=== PATIENT | female | born 1990 | race American Indian/Alaskan Native ===

== ENCOUNTER 2019-05-27 11:09 | Emergency (ER) | payer SELFPAY ==
[2019-05-27 11:21] VITALS: BP 123/66
--- NOTE | 2019-05-27 12:45 | Emergency Department Report ---
ED Allergic Reaction HPI - General Chief complaint: Allergic Reaction Stated complaint: ALLERGIC REACTION Time Seen by Provider: 05/27/19 12:41 Source: patient Mode of arrival: Ambulatory Limitations: No Limitations - History of Present Illness Initial Comments: Elizabeth presents with itching hives from drug reaction to metronidazole started yesterday for vaginitis, "bacterial infection." Has red patched on chest abdomen and hands. Diffuse itching. No angioedema. No shortness of breath. MD Complaint: allergic reaction, hives -: days(s) (1) Exposure: medication (new prescription flagyl) Symptoms: rash, itching Severity: mild Treatment Prior to Arrival: none Previous Allergy History: none - Related Data Previous Rx's Medication Instructions Recorded Last Taken Type Clindamycin 2% [Clindamycin 2% VAG 1 applicatio VG QHS 7 Days #7 cream 05/27/19 Unknown Rx CREAM] Famotidine [Pepcid] 20 mg PO BID 3 Days #6 tablet 05/27/19 Unknown Rx diphenhydrAMINE [Benadryl CAP] 50 mg PO QID 3 Days #12 capsule 05/27/19 Unknown Rx predniSONE [Deltasone] 50 mg PO QDAY 3 Days #3 tab 05/27/19 Unknown Rx Allergies Allergy/AdvReac Type Severity Reaction Status Date / Time metronidazole [From Flagyl] Allergy Hives Verified 05/27/19 11:21 Penicillins Allergy Hives Verified 05/27/19 11:21 ED Review of Systems ROS: Stated complaint: ALLERGIC REACTION Other details as noted in HPI Comment: All other systems reviewed and negative Constitutional: denies: fever, malaise Respiratory: denies: cough Cardiovascular: denies: chest pain Skin: rash, lesions ED Past Medical Hx - Past Medical History Previous Medical History?: No - Surgical History Past Surgical History?: No - Social History Smoking Status: Current Every Day Smoker Substance Use Type: None - Medications Home Medications: Home Medications Medication Instructions Recorded Confirmed Last Taken Type Clindamycin 2% [Clindamycin 2% VAG 1 applicatio VG QHS 7 Days #7 cream 05/27/19 Unknown Rx CREAM] Famotidine [Pepcid] 20 mg PO BID 3 Days #6 tablet 05/27/19 Unknown Rx diphenhydrAMINE [Benadryl CAP] 50 mg PO QID 3 Days #12 capsule 05/27/19 Unknown Rx predniSONE [Deltasone] 50 mg PO QDAY 3 Days #3 tab 05/27/19 Unknown Rx ED Physical Exam - General Limitations: No Limitations General appearance: alert, in no apparent distress - Head Head exam: Present: atraumatic, normocephalic - Eye Eye exam: Present: normal appearance - ENT ENT exam: Present: mucous membranes moist - Neck Neck exam: Present: normal inspection - Respiratory Respiratory exam: Present: normal lung sounds bilaterally. Absent: respiratory distress, wheezes, rales, rhonchi - Cardiovascular Cardiovascular Exam: Present: regular rate, normal rhythm, normal heart sounds. Absent: systolic murmur, diastolic murmur, rubs, gallop - GI/Abdominal GI/Abdominal exam: Present: soft, normal bowel sounds. Absent: distended, tenderness, guarding, rebound - Extremities Exam Extremities exam: Present: normal inspection - Back Exam Back exam: Present: normal inspection - Neurological Exam Neurological exam: Present: alert, oriented X3 - Psychiatric Psychiatric exam: Present: normal affect, normal mood - Skin Skin exam: Present: warm, dry, intact, rash, other (small red patches on both hands chest). Absent: normal color ED Course Vital Signs 05/27/19 11:18 Temperature 97.8 F Pulse Rate 78 Respiratory 18 Rate Blood Pressure 123/66 O2 Sat by Pulse 100 Oximetry ED Medical Decision Making - Medical Decision Making Allergic drug reaction: Prescribed prednisone and Benadryl famotidine no angioedema or bronchospasm present I replaced the metronidazole treatment with clindamycin cream Critical care attestation.: If time is entered above; I have spent that time in minutes in the direct care of this critically ill patient, excluding procedure time. ED Disposition Clinical Impression: Allergic drug reaction, Vaginitis Disposition: DC-01 TO HOME OR SELFCARE Is pt being admited?: No Does the pt Need Aspirin: No Condition: Stable Instructions: Antibiotic Medication Allergy (ED), Vaginitis (ED), Bacterial Vaginosis (ED) Additional Instructions: You are having an allergic reaction to allergic to metronidazole. The brand name is Flagyl. Prescriptions: Clindamycin 2% [Clindamycin 2% VAG CREAM] 1 applicatio VG QHS 7 Days #7 cream diphenhydrAMINE [Benadryl CAP] 50 mg PO QID 3 Days #12 capsule predniSONE [Deltasone] 50 mg PO QDAY 3 Days #3 tab Famotidine [Pepcid] 20 mg PO BID 3 Days #6 tablet Referrals: CHRISTIANO MENDOZA MD [Primary Care Provider] - 3-5 Days Forms: Work/School Release Form(ED)
[2019-05-27] MEDS ORDERED: PEPCID PO ONE (12:46)
[2019-05-27] MEDS ORDERED: BENADRYL PO ONE (12:46)
[2019-05-27] MEDS ORDERED: DELTASONE ONE (12:58)
[2019-05-27] MEDS: DELTASONE PO STA ×2 (13:00→13:31)
[2019-05-27] MEDS ORDERED: DELTASONE PO ONE ×2 (13:01→13:16)
== END 2019-05-27 13:38 | disposition home or self-care (01) ==
LOC: ED 11:09
DX: T47.0X5A Adverse effect of histamine H2-receptor blockers, initial encounter (principal); N76.0 Acute vaginitis; F17.200 Nicotine dependence, unspecified, uncomplicated; Y92.89 Other specified places as the place of occurrence of the external cause
CPT/HCPCS: 99282; J7512

== ENCOUNTER 2019-09-11 09:17 | Emergency (ER) | payer SELFPAY ==
--- NOTE | 2019-09-11 09:24 | Event Note ---
ED Screening Note ED Screening Note: vaginal irritation vaginal discharge +dysuria +itching no PMHx allergy: flagyl-rash, pcn-rash states she has a PCP, but does not have walk ins This initial assessment/diagnostic orders/clinical plan/treatment(s) is/are subject to change based on patients health status, clinical progression and re-assessment by fellow clinical providers in the ED. Further treatment and workup at subsequent clinical providers discretion. Patient/guardian urged not to elope from the ED as their condition may be serious if not clinically assessed and managed. Initial orders include: UA, urine preg
[2019-09-11 10:13] LABS: Bacteria,Urine 1+ /HPF (Negative); Bilirubin,Urine NEG (Negative); Blood,Urine NEG (Negative); Color,Urine Straw (Yellow); Protein,Urine <15 mg/dL mg/dL (Negative); Urobilinogen,Urine < 2.0 mg/dL (<2.0); WBC,Urine < 1.0 /HPF (0.0-6.0)
[2019-09-11 10:14] LABS: HCG Qualitative,Urine Negative (Negative)
--- NOTE | 2019-09-11 10:24 | Emergency Department Report ---
ED Male HPI - General Chief complaint: Urogenital-Female Stated complaint: IRRIATATION PRIVATE AREA Time Seen by Provider: 09/11/19 09:22 Source: patient Mode of arrival: Ambulatory Limitations: No Limitations - Related Data Previous Rx's Medication Instructions Recorded Last Taken Type Clindamycin 2% [Clindamycin 2% VAG 1 applicatio VG QHS 7 Days #7 cream 05/27/19 Unknown Rx CREAM] Famotidine [Pepcid] 20 mg PO BID 3 Days #6 tablet 05/27/19 Unknown Rx diphenhydrAMINE [Benadryl CAP] 50 mg PO QID 3 Days #12 capsule 05/27/19 Unknown Rx predniSONE [Deltasone] 50 mg PO QDAY 3 Days #3 tab 05/27/19 Unknown Rx Allergies Allergy/AdvReac Type Severity Reaction Status Date / Time metronidazole [From Flagyl] Allergy Hives Verified 05/27/19 11:21 Penicillins Allergy Hives Verified 05/27/19 11:21 ED Review of Systems ROS: Stated complaint: IRRIATATION PRIVATE AREA Other details as noted in HPI Comment: All other systems reviewed and negative ED Past Medical Hx - Past Medical History Previous Medical History?: No - Surgical History Past Surgical History?: No - Social History Smoking Status: Current Every Day Smoker Substance Use Type: None - Medications Home Medications: Home Medications Medication Instructions Recorded Confirmed Last Taken Type Clindamycin 2% [Clindamycin 2% VAG 1 applicatio VG QHS 7 Days #7 cream 05/27/19 Unknown Rx CREAM] Famotidine [Pepcid] 20 mg PO BID 3 Days #6 tablet 05/27/19 Unknown Rx diphenhydrAMINE [Benadryl CAP] 50 mg PO QID 3 Days #12 capsule 05/27/19 Unknown Rx predniSONE [Deltasone] 50 mg PO QDAY 3 Days #3 tab 05/27/19 Unknown Rx ED Physical Exam - General Limitations: No Limitations General appearance: alert, in no apparent distress - Head Head exam: Present: atraumatic, normocephalic - Eye Eye exam: Present: normal appearance - ENT ENT exam: Present: mucous membranes moist - Neck Neck exam: Present: normal inspection - Respiratory Respiratory exam: Present: normal lung sounds bilaterally. Absent: respiratory distress - Cardiovascular Cardiovascular Exam: Present: regular rate, normal rhythm. Absent: systolic murmur, diastolic murmur, rubs, gallop - GI/Abdominal GI/Abdominal exam: Present: soft, normal bowel sounds. Absent: distended, tenderness - External exam: Present: normal external exam. Absent: erythema, swelling, lesions, lacerations, bleeding Speculum exam: Absent: vaginal discharge Bi-manual exam: Absent: cervical motion tendernes - Extremities Exam Extremities exam: Present: normal inspection, full ROM - Back Exam Back exam: Present: normal inspection - Neurological Exam Neurological exam: Present: alert, oriented X3 - Psychiatric Psychiatric exam: Present: normal affect, normal mood - Skin Skin exam: Present: warm, dry, intact, normal color. Absent: rash ED Course Vital Signs 09/11/19 09:23 Temperature 98.2 F Pulse Rate 86 Respiratory 18 Rate Blood Pressure 108/57 O2 Sat by Pulse 97 Oximetry Critical care attestation.: If time is entered above; I have spent that time in minutes in the direct care of this critically ill patient, excluding procedure time. ED Disposition Condition: Stable
--- NOTE | 2019-09-11 10:34 | Emergency Department Report ---
ED Female HPI - General Chief complaint: Urogenital-Female Stated complaint: IRRIATATION PRIVATE AREA Time Seen by Provider: 09/11/19 09:22 Source: patient Mode of arrival: Ambulatory Limitations: No Limitations - History of Present Illness Initial comments: This is a 28-year-old female who presents to ED complaining of some vaginal irritation related to some condom use. Patient states her symptoms started this morning. She denies any vaginal discharge but states to the some irritation to the vaginal area. She denies dysuria, pelvic or abdominal pain, nausea vomiting, fever. Patient states she is on the Depo-Provera and has not seen her cycle for a while. Associated Symptoms: denies other symptoms. denies: vaginal discharge, vaginal bleeding, loss of appetite - Related Data Sexually active: Yes Previous Rx's Medication Instructions Recorded Last Taken Type Famotidine [Pepcid] 20 mg PO BID 3 Days #6 tablet 05/27/19 Unknown Rx diphenhydrAMINE [Benadryl CAP] 50 mg PO QID 3 Days #12 capsule 05/27/19 Unknown Rx predniSONE [Deltasone] 50 mg PO QDAY 3 Days #3 tab 05/27/19 Unknown Rx Clindamycin 2% [Clindamycin 2% VAG 1 applicatio VG QHS 7 Days #7 cream 09/11/19 Unknown Rx CREAM] Allergies Allergy/AdvReac Type Severity Reaction Status Date / Time metronidazole [From Flagyl] Allergy Hives Verified 05/27/19 11:21 Penicillins Allergy Hives Verified 05/27/19 11:21 ED Review of Systems ROS: Stated complaint: IRRIATATION PRIVATE AREA Other details as noted in HPI Comment: All other systems reviewed and negative ED Past Medical Hx - Past Medical History Previous Medical History?: No - Surgical History Past Surgical History?: No - Social History Smoking Status: Current Every Day Smoker Substance Use Type: None - Medications Home Medications: Home Medications Medication Instructions Recorded Confirmed Last Taken Type Famotidine [Pepcid] 20 mg PO BID 3 Days #6 tablet 05/27/19 Unknown Rx diphenhydrAMINE [Benadryl CAP] 50 mg PO QID 3 Days #12 capsule 05/27/19 Unknown Rx predniSONE [Deltasone] 50 mg PO QDAY 3 Days #3 tab 05/27/19 Unknown Rx Clindamycin 2% [Clindamycin 2% VAG 1 applicatio VG QHS 7 Days #7 cream 09/11/19 Unknown Rx CREAM] ED Physical Exam - General Limitations: No Limitations General appearance: alert, in no apparent distress - Head Head exam: Present: atraumatic, normocephalic - Eye Eye exam: Present: normal appearance - ENT ENT exam: Present: mucous membranes moist - Neck Neck exam: Present: normal inspection - Respiratory Respiratory exam: Present: normal lung sounds bilaterally. Absent: respiratory distress - Cardiovascular Cardiovascular Exam: Present: regular rate, normal rhythm. Absent: systolic murmur, diastolic murmur, rubs, gallop - GI/Abdominal GI/Abdominal exam: Present: soft, normal bowel sounds. Absent: distended, tenderness, guarding - External exam: Present: normal external exam. Absent: erythema, swelling, lesions, lacerations, bleeding Speculum exam: Absent: erythema, vaginal discharge Bi-manual exam: Absent: cervical motion tendernes - Extremities Exam Extremities exam: Present: normal inspection - Back Exam Back exam: Present: normal inspection - Neurological Exam Neurological exam: Present: alert, oriented X3 - Psychiatric Psychiatric exam: Present: normal affect, normal mood - Skin Skin exam: Present: warm, dry, intact, normal color. Absent: rash ED Course Vital Signs 09/11/19 09:23 Temperature 98.2 F Pulse Rate 86 Respiratory 18 Rate Blood Pressure 108/57 O2 Sat by Pulse 97 Oximetry ED Medical Decision Making - Lab Data Laboratory Last Values Urine Color Straw (Yellow) 09/11/19 Unknown Urine Turbidity Clear (Clear) 09/11/19 Unknown Urine pH 5.0 (5.0-7.0) 09/11/19 Unknown Ur Specific [place] 1.008 (1.003-1.030) 09/11/19 Unknown Urine Protein <15 mg/dl mg/dL (Negative) 09/11/19 Unknown Urine Glucose (UA) Neg mg/dL (Negative) 09/11/19 Unknown Urine Ketones Neg mg/dL (Negative) 09/11/19 Unknown Urine Blood Neg (Negative) 09/11/19 Unknown Urine Nitrite Neg (Negative) 09/11/19 Unknown Urine Bilirubin Neg (Negative) 09/11/19 Unknown Urine Urobilinogen < 2.0 mg/dL (<2.0) 09/11/19 Unknown Ur Leukocyte Esterase Neg (Negative) 09/11/19 Unknown Urine WBC (Auto) < 1.0 /HPF (0.0-6.0) 09/11/19 Unknown Urine RBC (Auto) 1.0 /HPF (0.0-6.0) 09/11/19 Unknown U Epithel Cells (Auto) < 1.0 /HPF (0-13.0) 09/11/19 Unknown Urine Bacteria (Auto) 1+ /HPF (Negative) 09/11/19 Unknown Urine HCG, Qual Negative (Negative) 09/11/19 Unknown - Medical Decision Making 28-year-old female presents with vaginitis. Urinalysis and urine test was negative. Discussed prescription with patient and follow-up with [facility]. Discuss if any worsening symptoms or new onset of symptoms to follow to return to ED immediately. Patient is in no acute distress shortness instructions. Vital signs are normal. Critical care attestation.: If time is entered above; I have spent that time in minutes in the direct care of this critically ill patient, excluding procedure time. ED Disposition Clinical Impression: Vaginitis Disposition: DC-01 TO HOME OR SELFCARE Is pt being admited?: No Does the pt Need Aspirin: No Condition: Stable Instructions: Vaginitis (ED) Additional Instructions: Make sure to follow up with the primary care physician as discussed. Take all your medications as you've been prescribed. If you have any worsening symptoms or develop new symptoms please return to ED immediately. Prescriptions: Clindamycin 2% [Clindamycin 2% VAG CREAM] 1 applicatio VG QHS 7 Days #7 cream Referrals: [facility] [Outside] - 3-5 Days [facility] [Outside] - 3-5 Days Forms: Work/School Release Form(ED) Time of Disposition: 10:37
[2019-09-11 10:47] VITALS: BP 119/70
== END 2019-09-11 10:46 | disposition home or self-care (01) ==
LOC: ED 09:17
DX: N76.0 Acute vaginitis (principal); F17.200 Nicotine dependence, unspecified, uncomplicated; Z88.1 Allergy status to other antibiotic agents; Z88.0 Allergy status to penicillin
CPT/HCPCS: 81001; 81025